=== PATIENT | male | born 1950 | race Caucasian/White ===

== ENCOUNTER → 2023-06-09 | Outpatient (CLI) | payer MEDICARE ==
--- NOTE | 2023-06-09 13:29 | Diagnostic Imaging Report ---
INDICATION: AAA SCREENING history of smoking. COMPARISON: None TECHNIQUE: Limited abdominal sonogram was performed to evaluate the abdominal aorta. 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 Proximal aorta measures 4.5 x 5.5 cm. Mid aorta measures 3.5 x 4.3 cm. Distal aorta measures 3.6 x 4.3 cm. Maximum systolic velocities measure 51 cm/s, 24 cm/s, and 30 cm/s, respectively. There is also ectasia of the bilateral common iliac arteries. Right common iliac artery measures 0.9 x 1 cm and the left measures 1 x 1.2 cm. Note is also made of moderate amount of mural thrombus within the infrarenal portion of the abdominal aorta.. There is no ascites. IMPRESSION: 1. 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 Dictated by: Dictated on workstation # [id number]
== END ==
LOC: RAD 09:47
PROVIDERS: ATTEND Internal Medicine
DX: Z13.6 Encounter for screening for cardiovascular disorders (principal); I71.40 Abdominal aortic aneurysm, without rupture, unspecified; I21.9 Acute myocardial infarction, unspecified
CPT/HCPCS: 76775